=== PATIENT | male | born 2000 | race Caucasian/White ===

== ENCOUNTER 2021-04-05 09:18 | Emergency (ER) | payer BC ==
[~2021-04-05] VITALS: Ht 172.7 cm; Wt 79.5 kg
[2021-04-05] MEDS ORDERED: PROZAC 20MG20 MG PO (09:34)
[2021-04-05] MEDS ORDERED: SINGULAIR 110 MG/TAB PO (09:34)
[2021-04-05 10:27] LABS: HEMOGLOBIN 13.9 g/dl (13.5-18.0); MEAN CELL VOLUME 81 fl (80.0-100.0); MEAN CORPUSCULAR HEMOGLOBIN 29 pg (27.0-31.0); MEAN CORPUSCULAR HGB CONC 36 g/dl (33.0-37.0); MEAN PLATELET VOLUME 8.8 fl (7.4-10.4); PLATELET COUNT 183 K/mm3 (130-400); RED BLOOD COUNT 4.81 M/mm3 (4.20-5.60); REDCELL DISTRIBUTION WIDTH-CV 11.9 % (11.5-14.5)
[2021-04-05 10:40] LABS: BAND 16 % (0-10); NEUTROPHILS 38 % (42.0-75.2); PLATELET ESTIMATE NORMAL (NORMAL)
[2021-04-05 10:51] LABS: LYMPHOCYTE 39 % (20.0-51.0)
[2021-04-05 10:52] LABS: MONOSCREEN POSITIVE
[2021-04-05 11:09] LABS: ALBUMIN 3.9 gm/dL (3.5-5.0); BILIRUBIN,TOTAL 0.4 mg/dL (0.2-1.2); CALCIUM 8.4 mg/dL (8.4-10.2); CREATININE, serum 0.95 mg/dL (0.72-1.25); TOTAL PROTEIN 7.5 gm/dL (6.2-8.1)
[2021-04-05] MEDS ORDERED: PREDNISONE20 MG PO (12:24)
[2021-04-05 13:00] VITALS: BP 121/71; PULSE 92; TEMP 98.8
== END 2021-04-05 13:02 | disposition home or self-care (01) ==
LOC: COL.ER 09:18
PROVIDERS: Personal Emergency Response Attendant
DX: B27.90 Infectious mononucleosis, unspecified without complication (principal); F17.290 Nicotine dependence, other tobacco product, uncomplicated
CPT/HCPCS: J0696; J1100; J7030